=== PATIENT | female | born 1935 | race Caucasian/White ===

== ENCOUNTER → 2018-02-15 | Day surgery (SDC) | payer MEDICARE, OTHER ==
[~2018-02-15] MED LIST: AMLODIPINE BES2.5 MG PO; AMLODIPINE BESYL5 MG PO; BALANCED SALT SOLN (OPTH) 15 ML BTL IO ONE; ENALAPRIL MALEA20 MG PO; GELATIN SPONGE 12-7MM ONE; LIDOCAINE 2% /EPINEPHRINE 20 ML SDV INJ ONE; LIDOCAINE HCL 2% LOCAL INJ 5 ML SDV VIAL INJ ONE; LORAZEPAM1 MG PO; MIDAZOLAM HCL 2 MG/2 ML VIAL ONE; NEOMYCIN/POLYMYXIN/DEX (OPTH) 3.5 GM TUBE ONE; PROPOFOL IV EMULSION 10 MG/ML 20 ML VIAL ONE
--- OUTSIDE RECORDS SUMMARY | 2018-02-15 13:47 | XMS REPORT | Summary of Care ---
Author Organization Unknown Address Unknown Phone Unavailable Encounter HQ Encntr_alias(MIGUELITO) [id number] Date(s): 12/04/13 - 12/04/13 [facility] [address] [place], [place] [id number] [place] [address] Discharge Disposition: Home Physician Attending: Avelino Weston MD Physician_Referring: Avelino Weston MD Reason for Visit 401.9-HTN/272.0=HYPERCHOLESTEROLEMIA/780.52=INSOMNIA Problem List No data available for this section Allergies, Adverse Reactions, Alerts Substance Reaction Severity Status NKDA Active Medications No data available for this section Medications Administered During Your Visit No data available for this section Immunizations No data available for this section
--- OUTSIDE RECORDS SUMMARY | 2018-02-15 13:47 | XMS REPORT | Summary of Care ---
Author Author [facility] Organization [facility] Address Unknown Phone Unavailable Encounter HQ Toya_dany(MIGUELITO) [id number] Date(s): 06/02/16 - 06/02/16 [facility] [address] [place] [address]- [phone] Discharge Disposition: Home or Self Care Attending Physician: Avelino Weston MD Referring Physician: Avelino Weston MD Vital Signs No data available for this section Problem List Condition Effective Dates Status Health Status Informant Hypertension(Confirm Active ed) Allergies, Adverse Reactions, Alerts Substance Reaction Severity Status NKDA Active Medications No data available for this section Results No data available for this section Immunizations No data available for this section Procedures Procedure Date Related Diagnosis Body Site Colonoscopy Social History Social History Type Response Alcohol Current, Type Wine. Frequency: 1-2 times per month. Previous treatment: None. Alcohol use interferes with work or home: No. Drinks more than intended: No. Others hurt by drinking: No. Ready to change: No. Household alcohol concerns: No. Smoking Status Never smoker; Exposure to Tobacco Smoke None; Cigarette Smoking Last 365 Days No; Reg Smoking Cessation Counseling No Assessment and Plan No data available for this section
--- OUTSIDE RECORDS SUMMARY | 2018-02-15 13:47 | XMS REPORT | Summary of Care ---
Author Organization Unknown Address Unknown Phone Unavailable Encounter HQ Encntr_alias(MIGUELITO) [id number] Date(s): 08/28/14 - 08/28/14 [facility] [address] [place] [address]- [phone] Discharge Disposition: Home Physician Attending: Avelino Weston MD Physician_Referring: Avelino Weston MD Vital Signs No data available for this section Problem List No data available for this section Allergies, Adverse Reactions, Alerts Substance Reaction Severity Status NKDA Active Medications No data available for this section Results No data available for this section Immunizations No data available for this section Procedures No data available for this section Social History No data available for this section Assessment and Plan No data available for this section
--- OUTSIDE RECORDS SUMMARY | 2018-02-15 13:47 | XMS REPORT | Continuity of Care Document ---
Author Author [facility] Interface Address Unknown Phone Unavailable Problems Problem Status Onset Date Classification Date Reported Comments Source I34.0 / I35.1 / K82.4 / J30.9 / Z79.899 Active 05/28/2016 [facility] UNK Active 06/14/2015 [facility] Z12.11 Active 06/14/2015 [facility] 575.9 POLYP OF GALLBLADDER Active 08/21/2014 [facility] 401.9-HTN/272.0=HYPERCHOLESTEROLEMIA/780 Active 11/29/2013 [facility] Hypertension Active Problem 06/05/2016 [facility] DIS OF GALLBLADDER NOS Active [facility] HYPERTENSION NOS Active [facility] ENCOUNTER FOR SCREENING FOR MALIGNANT NE Active [facility] NONRHEUMATIC MITRAL (VALVE) INSUFFICIENC Active [facility] NONRHEUMATIC AORTIC (VALVE) INSUFFICIENC Active [facility] CHOLESTEROLOSIS OF GALLBLADDER Active [facility] Medications Medication Details Route Status Patient Instructions Ordering Provider Order Date Source Sodium Chloride 0.154 MEQ/ML Injectable Solution 1,000 mL, Rate: 25 ml/hr, Infuse over: 40 hr, Route: IV, Dosing Weight 67.273 kg, Total Volume: 1,000, Start date: 07/10/15 6:31:00, Duration: 30 day, Stop date: 08/09/15 6:30:00 Inactive 07/10/2015 [facility] amLODIPine 5 mg oral tablet 5 mg=1 tab, PO, Daily, # 30 tab, 0 Refill(s) Active 07/02/2015 [facility] Allergies, Adverse Reactions, Alerts Substance Category Reaction Severity Reaction type Status Date Reported Comments Source Immunizations Immunization Date Given Site Status Last Updated Comments Source Results Order Name Results Value Reference Range Date Interpretation Comments Source Gallbladder US Gallbladder US Patient Name: SELENE LE : 1935; Age: 81 years Female MR: [id number] Study: Gallbladder US 06/03/2016 6:45 AM 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 FINDINGS: Liver: The liver demonstrates normal echogenicity and is normal in size, measuring 14.5 cm. No focal liver lesion identified. Gallbladder: Multiple echogenic and nonshadowing polyps within the gallbladder, the largest measuring 6-7 mm. No pericholecystic fluid or gallbladder wall thickening. Biliary: No intra or extrahepatic biliary ductal dilatation. The common bile duct measures 0.3 cm. Pancreas: The visualized portions of the pancreatic body are unremarkable. Kidney: The right kidney measures 10.5 cm in length. Normal renal echogenicity without evidence of hydronephrosis. No evidence of free fluid. IMPRESSION: Stable gallbladder polyps when compared to 08/28/2014. SL: [id number] 06/03/2016 - - Read by: Chivo Barriga MD Dictated Date/time: 06/03/16 08:25 Electronically Signed by: Chivo Barriga MD 06/03/16 08:28 FINAL REPORT [facility] US Gallbladder US PROCEDURE: RIGHT UPPER QUADRANT ULTRASOUND INDICATION: Gallbladder polyp. COMPARISON: Gallbladder ultrasound 12/04/2013. Liver ultrasound 05/29/2013. TECHNIQUE: Sonographic evaluation of the right upper quadrant of the abdomen was performed. Static images are submitted. FINDINGS: LIVER: The liver is normal in contour, morphology and echogenicity. The maximal craniocaudad dimension of the liver measures 13.5 cm. GALLBLADDER: A solitary nonshadowing nodule is noted involving the gallbladder wall concerning for a polyp measuring 0.8 cm, previously 0.87 cm on 05/29/2013 and 0.72 cm on 12/04/2013. There are no demonstrable gallstones, sludge, pericholecystic fluid or wall thickening. BILE DUCTS: No biliary dilatation. The visualized common hepatic duct measures 0.24 cm. PANCREAS: The visualized pancreas is unremarkable. RIGHT KIDNEY: The right kidney measures 10.8 x 5.1 x 4.5 cm. Normal renal contour and morphology with normal echogenicity. There is no hydronephrosis. Additional comments: Images of the inferior vena cava are unremarkable. There is no ascites. IMPRESSION: 1. Stable 0.8 cm gallbladder wall polyp. 2. Otherwise unremarkable right upper quadrant abdominal ultrasound. SL: 15 08/28/2014 - - Read by: Rocky Cosby MD Dictated Date/time: 08/28/14 07:51 Electronically Signed by: Rocky Cosby MD 08/28/14 08:08 FINAL REPORT [facility] Vital Signs Vital Sign Value Date Comments Source Respitory Rate 20 07/10/2015 [facility] Systolic (mm Hg) 124 07/10/2015 [facility] Diastolic (mm Hg) 58 07/10/2015 [facility] Respitory Rate 16 07/10/2015 [facility] Systolic (mm Hg) 108 07/10/2015 [facility] Diastolic (mm Hg) 63 07/10/2015 [facility] Respitory Rate 12 07/10/2015 [facility] Systolic (mm Hg) 106 07/10/2015 [facility] Diastolic (mm Hg) 54 07/10/2015 [facility] Heart Rate 12 07/10/2015 [facility] Heart Rate 74 07/02/2015 [facility] Temperature Oral (F) 97.8 F 07/02/2015 [facility] Weight 67.273 07/02/2015 [facility] Height 165.1 cm 07/02/2015 [facility] BMI Calculated 24.68 07/02/2015 [facility] Encounters Location Location Details Encounter Type Encounter Number Reason For Visit Attending Provider ADM Date DC Date Status Source [facility] Outpatient [id number] Avelino Weston 12/04/2013 12/05/2013 [facility] Outpatient [id number] Avelino Weston 08/28/2014 08/29/2014 [facility] Bedded Outpatient [id number] Moris Cid 07/10/2015 07/10/2015 [facility] Outpatient [id number] Avelino Weston 06/02/2016 06/03/2016 [facility] Procedures Procedure Code Date Perfomer Comments Source Colonoscopy [id number] [facility]
--- OUTSIDE RECORDS SUMMARY | 2018-02-15 13:47 | XMS REPORT | Summary of Care ---
Author Author [facility] Organization [facility] Address Unknown Phone Unavailable Encounter SADIE Lewis(MIGUELITO) [id number] Date(s): 07/10/15 - 07/10/15 [facility] [address] [place] [address]- Discharge Disposition: Home Attending Physician: Moris Cid MD Referring Physician: Moris Cid MD Vital Signs 1 2 3 Most recent to oldest [Reference Range]: 165.1 cm (07/02/15 10:14 AM) Height 97.8 DegF (07/02/15 10:21 AM) Temperature Oral [96.4-99.1 DegF] 124/58 mmHg (07/10/15 7:56 AM) 108/63 mmHg (07/10/15 7:41 AM) 106/54 mmHg (07/10/15 7:26 AM) Blood Pressure [90-140/60-90 mmHg] 20 BRMIN (07/10/15 7:56 AM) 16 BRMIN (07/10/15 7:41 AM) 12 BRMIN *LOW* (07/10/15 7:26 AM) Respiratory Rate [14-20 BRMIN] 12 bpm *LOW* (07/10/15 6:36 AM) 74 bpm (07/02/15 10:21 AM) Peripheral Pulse Rate [60-100 bpm] 67.273 kg (07/02/15 10:14 AM) Weight 24.68 m2 (07/02/15 10:14 AM) Body Mass Index Problem List Condition Effective Dates Status Health Status Informant Hypertension(Confirm Active ed) Allergies, Adverse Reactions, Alerts Substance Reaction Severity Status NKDA Active Medications amLODIPine 5 mg oral tablet 5 mg=1 tab, PO, Daily, # 30 tab, 0 Refill(s) Start Date: 3/15/16 Status: Ordered Sodium Chloride 0.9% IV 1000 mL 1,000 mL, Rate: 25 ml/hr, Infuse over: 40 hr, Route: IV, Dosing Weight 67.273 kg , Total Volume: 1,000, Start date: 07/10/15 6:31:00, Duration: 30 day, Stop date : 08/09/15 6:30:00 Start Date: 07/10/15 Stop Date: 07/10/15 Status: Discontinued Results No data available for this section [...]
[2018-02-15 16:45] VITALS: BP 132/56
== END | disposition home or self-care (01) ==
LOC: OR 13:44
PROVIDERS: ATTEND Ophthalmology
DX: H02.834 Dermatochalasis of left upper eyelid (principal); H02.831 Dermatochalasis of right upper eyelid; I10 Essential (primary) hypertension
CPT/HCPCS: 15823; J2001 ×2; J2250; J2704